=== PATIENT | male | born 1970 | race Caucasian/White ===

== ENCOUNTER 2020-02-03 10:43 | Outpatient (CLI) | payer MEDICARE, BC | END 2020-02-03 23:59 | disposition home or self-care (01) | LOC: RAD 10:43 | PROVIDERS: ATTEND Physician Assistant | DX: M51.37 Other intervertebral disc degeneration, lumbosacral region (principal); M47.816 Spondylosis without myelopathy or radiculopathy, lumbar region | CPT/HCPCS: 72100 ==